=== PATIENT | male | born 1975 | race Caucasian/White ===

== ENCOUNTER 2019-07-12 09:44 | Emergency (ER) | payer OTHER ==
[~2019-07-12] VITALS: Ht 185.4 cm; Wt 115.7 kg
--- NOTE | 2019-07-12 10:03 | NUR ---
pt ambulating with steady gait. A&O x4. c/o sharp LLQ ABD Pain. sudden onset x2 hours ago. aggrevated by movement per pt. denies any trauma. hx of colitis per pt. states that pain has subsided a little bit after laying down. speech clear and able to make needs known / follow commands. denies any distress. Breathing even and unlabored, denies any SOB. fall precautions implemented per protocol, bed low, s/r up x2.
--- NOTE | 2019-07-12 10:13 | NUR ---
ERMD AT BEDSIDE FOR MSE
[2019-07-12] MEDS ORDERED: KETOROLAC TROMETHAMINE 15 MG INJ IVP ONE (10:15)
[2019-07-12] MEDS ORDERED: IV NORMAL SALINE 1000 ML BAG IV ONE (10:15)
[2019-07-12] MEDS ORDERED: KETOROLAC TROMETHAMINE 15 MG INJ ONE (10:19)
[2019-07-12 10:26] LABS: BASOPHILS # (AUTO) 0.1 K/uL (0.0-8.0); BASOPHILS % (AUTO) 1.2 % (0.0-2.0); EOSINOPHILS # (AUTO) 0.1 K/uL (0.0-0.7); EOSINOPHILS % (AUTO) 0.8 % (0.0-7.0); HEMATOCRIT 48.1 % (36.7-47.1); HEMOGLOBIN 15.8 g/dL (12.5-16.3); LYMPHOCYTES # (AUTO) 2.8 K/uL (20.0-40.0); LYMPHOCYTES % (AUTO) 25.6 % (20.5-51.5); MEAN CORPUSCULAR HEMOGLOBIN 28.7 uug (23.8-33.4); MEAN CORPUSCULAR HGB CONC 33 g/dL (32.5-36.3); MEAN CORPUSCULAR VOLUME 87.1 fL (73.0-96.2); MONOCYTES # (AUTO) 0.8 K/uL (2.0-10.0); MONOCYTES % (AUTO) 7.6 % (0.0-11.0); NEUTROPHILS # (AUTO) 7.1 K/uL (1.8-8.9); NEUTROPHILS % (AUTO) 64.8 % (38.5-71.5); PLATELET COUNT (AUTO) 264 K/uL (152-348); RED BLOOD CELL COUNT(AUTO) 5.52 MIL/uL (4.06-5.63)
[2019-07-12 10:28] LABS: CREATININE 1.1 mg/dL (0.6-1.3); POTASSIUM 4.1 mmol/L (3.5-5.1)
[2019-07-12 10:34] LABS: BILIRUBIN,DIRECT 0.1 mg/dL (0.0-0.2); BILIRUBIN,TOTAL 0.5 mg/dL (0.2-1.0); TOTAL PROTEIN, SERUM 8.8 g/dL (6.4-8.2)
[2019-07-12 11:18] LABS: *BILIRUBIN,URIN NEGATIVE (NEGATIVE); *BLOOD, URINE 1+ (NEGATIVE); *CLARITY,URINE CLEAR (CLEAR); *COLOR,URINE YELLOW (YELLOW); *KETONES,URINE NEGATIVE (NEGATIVE); *UROBILINOGEN,URINE 0.2 E.U./dl (NORMAL); LEUKOCYTE ESTERASE ,URINE NEGATIVE (NEGATIVE); NITRITE, URINE NEGATIVE (NEGATIVE); UGLUCOSE NEGATIVE (NEGATIVE)
[2019-07-12 11:24] LABS: BACTERIA,URINE FEW /HPF (NONE SEEN); RBC,URINE 0-3 /HPF (0-3); SQUAMOUS EPITHELIAL CELL,UR FEW /HPF (NONE SEEN); WBC,URINE 0-3 /HPF (0-3)
--- NOTE | 2019-07-12 11:57 | NUR ---
patient taken to CT scan
--- NOTE | 2019-07-12 12:08 | NUR ---
pt back from CT scan
[2019-07-12 13:18] VITALS: BP 131/68
--- NOTE | 2019-07-12 13:21 | NUR ---
Patient discharged to home in stable conditon. pt ambulating with steady gait. Written and verbal after care instructions given. Patient verbalizes understanding of instructions. IV DC'd. pt tolerated well
== END 2019-07-12 13:23 | disposition home or self-care (01) ==
LOC: ER 09:44
DX: N20.1 Calculus of ureter (principal)
CPT/HCPCS: 36415; 74176; 80048; 80076; 81000; 81001; 83690; 84484; 85025; 96374; 99284; J1885; 70030-TC; A4663; J7030